=== PATIENT | male | born 1955 | race Caucasian/White ===

== ENCOUNTER 2025-06-01 12:51 | Emergency (ER) | payer OTHER, SELFPAY ==
[2025-06-01 12:52] VITALS: O2SAT 45
[2025-06-01 13:18] VITALS: TEMP 34.7
[2025-06-01 13:24] VITALS: BMI 21.7
--- NOTE | 2025-06-01 13:25 | ED.RN ---
Approx 400ml of fluids given.
--- NOTE | 2025-06-01 13:54 | EX.ED.DYSGE1 ---
HPI History of Present Illness Chief Complaint: Cardiac Arrest Narrative Narrative: 69-year-old male history of hypertension, hyperlipidemia, tobacco use presents emergency department as cardiac arrest. Patient brought in by EMS after patient was working at [employer] which is his daily job and had a witnessed cardiac arrest. 911 was called and patient appeared to be in PEA approximately 10 minutes prior to their arrival. EMS got there and had PEA for 10 minutes and 5 minutes of ventricular fibrillation. They defibrillated patient and gave epinephrine and amiodarone. Patient then went into PEA and at no point had returned of pulses. Blood sugar 86. [facility] Social History Smoking Status: Never smoker EXAM Physical Exam Const Vital Signs: 06/01/25 12:52 06/01/25 12:52 06/01/25 13:18 Temperature 94.5 F L Temperature Source Temporal Pulse Ox 45 Oxygen Delivery Method Ambu-Bag Ambu-Bag Constitutional Narrative: Unresponsive, GCS 3 Eyes Eyes Narrative: Fixed pupils, 3+ Chest Wall inspection of chest normal and palpation of chest normal Resp Resp Narrative: I-gel in place, bilateral breath sounds Cardio Rhythm: abnormal rhythm other (PEA) GI Inspection: abdominal distention Extremity normal to inspection Neuro Neuro Narrative: Unresponsive Skin Skin Narrative: no signs of trauma, lesions, ecchymosis MDM MDM MDM Narrative Medical decision making narrative: 69-year-old male history of hypertension, hyperlipidemia, tobacco use presents emergency department as cardiac arrest. Patient brought in by EMS after patient was working at [employer] which is his daily job and had a witnessed cardiac arrest. 911 was called and patient appeared to be in PEA approximately 10 minutes prior to their arrival. EMS got there and had PEA for 10 minutes and 5 minutes of ventricular fibrillation. They defibrillated patient and gave epinephrine and amiodarone. Patient then went into PEA and at no point had returned of pulses. Blood sugar 86. On physical exam patient having 3+ fixed pupils with i-gel in place saturating in the 70s with bilateral breath sounds. No signs of trauma on exposure of patient. CPR was performed consistent with multiple rounds showing PEA. Definitive airway was placed with intubation with good capnography capture in the 30s. Approximately 20 additional minutes performed of CPR with epinephrine given for multiple rounds with no change in rhythm or return of pulses. Patient had been down for approximately 40 minutes in total. Time of was called at 1303. Patient's sister was contacted and reviewing patient has not seen primary care provider in quite some time. Primary care provider did call who agreed to release the body. History & Record Review Discussion w/independent historian: EMS personnel Lab Data Attestation: I reviewed the patient's lab results. Labs: Laboratory Results - last 24 hr 06/01/25 13:02 POC Glucose 86 Procedures Intubations Intubation Method: orotracheal (4-0 nicolas blade with 7.5 ETT at 24 at lips) Intubation Verification: Positive color change and Bilateral breath sounds confirmed Intubation Complications: no complications Critical Care Time Critical Care Time: Yes Critical care time (excluding procedures): 30-74 minutes, Including time spent: (35), Discussing w/Patient &/or Family/Shale Miner and Performing Direct Patient Care at Bedside Discharge Plan Triage Chief Complaint: Cardiac Arrest ED Provider: Jojo Garcia Dx/Rx/DC Orders Clinical Impression: Cardiac arrest Primary Care Provider: Care Physician,No Primary Referrals: Care Physician,No Primary [Primary Care Provider, Medical] Print Language: Syriac Disposition Disposition: Date/Time: 06/01/25 13:03
--- NOTE | 2025-06-01 13:55 | ED.RN ---
physician called sister Sari, no answer, left number to return phonecall.
--- NOTE | 2025-06-01 14:16 | CM.ED ---
Social work Reason for referral: code blue MANJU responded to hannah burdick called for patient upon arrival to ED. When SW arrived, patient was being worked on by [facility] ED staff; [facility] Station Examiner Ray also present. SW made aware that ALVA Martines went to patient's work to see about emergency contact information due to this being patient's first time at [facility]. Patient without family present. As of 1330, MANJU made aware that Dr Garcia was calling patient's sister, Sari Milligan (ph: [phone]), to inform next of kin. Reportedly, a VM originally had to be left, but Sari returned call about 1400. Sari spoke with Dr Garcia prior to asking to talk with MANJU. SW expressed condolences for Sari's loss and Sari expressed having an important doctor's appointment about 1430. Sari then stated knowing patient would want to use [facility] in [facility] and would want to be cremated. Sari asked if Sari had to come to [facility] ED and Sari stated wanting to see patient one more time prior to cremation. SW told Sari that it was Sari's decision whether or not Sari came to [facility] ED to see patient's body. SW confirmed that [facility] staff could let the home know that Sari would want to see patient's body one more time prior to cremation. Sari stated Sari would cancel the doctor's appointment and come to [facility] ED in about an hour. SW provided Sari with warning that patient's body was covered in black due to patient's work; Sari stated knowing it would be due to patient living in Sari's basement. Sari stated coming to ED triage desk when Sari arrived and MANJU expressed condolences again prior to hanging up phone. SW updated oil field operator Manda and provided note for radio tester about Sari's expected arrival. SW to provided support for Sari upon arrival. Ashanti Stauffer, MOUNTER SOUSAPHONES, DEAF TEACHER
--- NOTE | 2025-06-01 15:43 | CM.ED ---
Social work SW notified by tapping machine operator automatic of Sari's arrival to [facility] ED. SW introduced self to Sari who was observed as being tearful and Sari stated waiting on friends who parked the car. Sari stated not being surprised by patient's as patient's parents both of heart attacks at an early age as well. Sari stated patient's/Sari's older brother had also passed, so patient's passing left Sari all alone. Sari's friends arrived and SW led them to patient's room. Sari was tearful at patient's bedside as were Sari's close family friends. SW provided active listening, supportive presence, and condolences to all in the room. cardiac/vascular sonographer Manda entered and provided condolences as well. Sari stated needing to go lease picker patient's car at patient's workplace along with patient's other belongings. Sari asked for [facility]'s phone number and SW stated the home would reach out to Sari to begin to set up arrangements. Sari stated being able to call [facility] with patient's insurance information and anything else in need. Sari stated not having further needs at this time. Sari was given space to say final goodbyes and SW walked Sari and family friends to the doors. Ashanti Stauffer, SITE SAFETY COORDINATOR, SHADOW GRAPH WEIGHT OPERATOR
--- NOTE | 2025-06-01 15:46 | CHAPLAIN ---
Type of Pastoral Visit ___ Initial Visit ___ Follow-up Visit ___ On-call Visit ___ General Patient Visit ___ Spiritual Assessment ___ Family Conference ___ Bereavement ___ Rapid Response _x__ Code Blue ___ Other (describe below) Pastoral Care Referral From ___ Patient ___ Family ___ Nurse ___ Physician ___ Rug Cleaner ___ Substation Supervisor _x__ Other (describe below) Sacrament/Intervention ___ Active listening ___ Anointing ___ Episcopal ___ Bereavement ___ Communion ___ Patience exploration ___ ___ Life review _x__ Prayer ___ Reconciliation ___ Sacrament of Sick _x__ Supportive presence ___ Wedding ___ Other (describe below) Pastoral Comments responded to the code blue in the ED; patient arrived with active CPR but had not responded to interventions; was present for the many minutes that the ED team attempted to revive the patient; family members are not present; staff became involved to contact family members through the place of employment of the patient; pt was pronounced ; this spiral machine operator led the team in the PAUSE procedure; this spiral machine operator notified staff that he was available to family members if any of them came to the hospital
== END 2025-06-01 17:24 ==
PROVIDERS: Emergency Provider Student in an Organized Health Care Education/Training Program; Visit Provider Student in an Organized Health Care Education/Training Program
DX: I49.01 Ventricular fibrillation (principal); I46.2 Cardiac arrest due to underlying cardiac condition; I10 Essential (primary) hypertension; E78.5 Hyperlipidemia, unspecified; Z79.899 Other long term (current) drug therapy
CPT/HCPCS: 31500; 82962; 92950; 99283; A4216